=== PATIENT | male | born 1945 | race Caucasian/White ===

== ENCOUNTER 2017-02-07 09:42 | Emergency (ER) | payer MEDICARE, OTHER ==
[~2017-02-07] VITALS: Ht 182.9 cm; Wt 94.0 kg
[~2017-02-07 09:42] MED LIST: ASPI325T4 PO; ATOR20TA9 PO; DICL50TA4 PO; FINA5TAB4 PO; FLUO40CA2 PO; OMEP-110 PO
[2017-02-07 09:46] VITALS: BP 134/76
[2017-02-07 10:58] LABS: HEMATOCRIT 42.2 % (39.2-51.8); WHITE BLOOD COUNT 10.6 x10^3/uL (3.4-10)
[2017-02-07 11:01] LABS: BLOOD UREA NITROGEN 26 mg/dL (7-18)
[2017-02-07] MEDS ORDERED: CLINDAMYCIN 300 MG CAPSULE PO ONE (11:30)
[2017-02-07] MEDS ORDERED: BACITRACIN ZINC OINT 500U/GM, 0.9 GM ONE (12:15)
== END 2017-02-07 12:26 | disposition home or self-care (01) ==
LOC: ED 10:55
DX: L03.115 Cellulitis of right lower limb (principal); M96.89 Other intraoperative and postprocedural complications and disorders of the musculoskeletal system
CPT/HCPCS: 36415; 80048; 85025; 99285

== ENCOUNTER 2018-01-14 02:34 | Inpatient (IN) | payer MEDICARE, OTHER ==
[~2018-01-14] VITALS: Ht 180.3 cm; Wt 103.5 kg
[~2018-01-14 02:34] MED LIST changes: +ASPI325T17 PO; -ASPI325T4 PO
[2018-01-14] MEDS ORDERED: NALOXONE 0.4 MG/ML, 1ML ONE (02:36)
[2018-01-14 02:48] LABS: BASOPHILS # (AUTO) 0.05 x10^3/uL (0-0.1); BASOPHILS % (AUTO) 1 % (0-1); EOSINOPHILS # (AUTO) 0.62 x10^3/uL (0-0.4); EOSINOPHILS % (AUTO) 10 % (1-7); LYMPHOCYTES # (AUTO) 1.31 x10^3/uL (1-3.4); LYMPHOCYTES % (AUTO) 21 % (22-44); MD NO; MEAN CORPUSCULAR HEMOGLOBIN 30.5 pg (27.5-34.5); MEAN CORPUSCULAR HGB CONC 33.9 g/dL (33.2-36.2); MEAN PLATELET VOLUME 7.8 fL (7.4-10.4); MONOCYTES # (AUTO) 0.72 x10^3/uL (0.2-0.8); MONOCYTES % (AUTO) 11 % (2-9); NEUTROPHILS % (AUTO) 58 % (42-75); PLATELET COUNT 273 x10^3/uL (130-400); RED BLOOD COUNT 4.85 x10^6/uL (4.38-5.82); RED CELL DISTRIBUTION WIDTH 13.7 % (9.4-14.8)
[2018-01-14] MEDS ORDERED: OMNIPAQUE 350 MG/ML, 100ML BOTTLE ONE (02:59)
[2018-01-14 03:00] LABS: ALBUMIN 3.8 g/dL (3.4-5.0); ANION GAP 7 mmol/L (5-15); CALCIUM 8.4 mg/dL (8.5-10.1); CHLORIDE 108 mmol/L (98-107); CREATININE 1.18 mg/dL (0.7-1.3)
[2018-01-14] MEDS ORDERED: NALOXONE 0.4 MG/ML, 1ML IVPush ONE (03:00)
[2018-01-14 03:04] LABS: PROTHROMBIN TIME 10.4 Seconds (9.6-11.5); TROPONIN I < 0.015 ng/mL (0.000-0.045)
[2018-01-14] MEDS ORDERED: NALOXONE 1 MG/ML, 2ML ONE (03:14)
[2018-01-14] MEDS ORDERED: NALOXONE 1 MG/ML, 2ML IVPush ONE (03:30)
[2018-01-14 04:26] LABS: MICROSCOPIC NOT IND
[2018-01-14 04:32] LABS: CULTURE INDICATED? NO
[2018-01-14 04:38] LABS: AMPHETAMINE SCREEN, URINE Negative (Negative); BARBITURATE SCREEN, URINE Negative (Negative); BENZODIAZEPINE SCREEN, URINE Negative (Negative); CANNABINOID SCREEN, URINE Negative (Negative); COCAINE SCREEN, URINE Negative (Negative); METHADONE SCREEN, URINE Negative (Negative); OPIATE SCREEN, URINE Negative (Negative)
[2018-01-14] MEDS ORDERED: SODIUM CHLORIDE 0.9% 1,000 ML IV ONE (04:41)
[2018-01-14 06:39] VITALS: BP 156/93
[2018-01-14] MEDS ORDERED: ENALAPRILAT 1.25 MG/ML, 2ML IVPush PRN (07:00)
[2018-01-14] MEDS ORDERED: PROMETHAZINE 25 MG/ML, 1ML IM PRN (07:00)
[2018-01-14] MEDS ORDERED: POLYETHYLENE GLYCOL 17 GM PACKET PO PRN (07:00)
[2018-01-14] MEDS: ASPIRIN 325 MG TABLET EC PO SCH (07:00)
[2018-01-14] MEDS ORDERED: BISACODYL 10 MG SUPP PR PRN (07:00)
[2018-01-14] MEDS ORDERED: ONDANSETRON 2MG/ML, 2ML IVPush PRN (07:00)
[2018-01-14] MEDS ORDERED: ACETAMINOPHEN 325 MG TABLET PO PRN (07:00)
[2018-01-14] MEDS ORDERED: hydrALAzine 20 MG/ML, 1ML IVPush PRN (07:00)
[2018-01-14] MEDS ORDERED: DOCUSATE 100 MG CAPSULE PO PRN (07:00)
[2018-01-14] MEDS ORDERED: ONDANSETRON ODT 4 MG PO PRN (07:00)
[2018-01-14] MEDS ORDERED: PROZAC MC SCH (07:30)
[2018-01-14 07:34] LABS: FREE T4 (FREE THYROXINE) 0.67 ng/dL (0.76-1.46); THYROID STIMULATING HORMONE 3.15 mIU/L (0.358-3.740)
[2018-01-14 07:55] VITALS: BP 148/81
[2018-01-14] MEDS ORDERED: ASPIRIN 325 MG TABLET PO SCH (09:00)
[2018-01-14] MEDS: HEPARIN 5,000 UNITS/ML, 1ML SQ SCH ×3 (09:06→23:23)
[2018-01-14] MEDS: OMEPRAZOLE 20 MG CAPSULE.DR PO SCH (09:13)
[2018-01-14] MEDS: FINASTERIDE 5 MG TABLET PO SCH (09:13)
[2018-01-14] MEDS: FLUOXETINE HCL 20 MG CAPSULE PO SCH (11:24)
[2018-01-14 12:24] VITALS: BP 137/79
[2018-01-14 20:00] LABS: MICROSCOPIC AUTO
[2018-01-14 20:06] LABS: CULTURE INDICATED? NO
[2018-01-14 20:13] VITALS: BP 136/72
[2018-01-14] MEDS ORDERED: ATORVASTATIN 20 MG TABLET PO SCH (21:00)
[2018-01-15 01:02] VITALS: BP 144/87
[2018-01-15 05:16] LABS: BASOPHILS # (AUTO) 0.03 x10^3/uL (0-0.1); BASOPHILS % (AUTO) 0 % (0-1); EOSINOPHILS % (AUTO) 9 % (1-7); LYMPHOCYTES # (AUTO) 1.24 x10^3/uL (1-3.4); LYMPHOCYTES % (AUTO) 19 % (22-44); MD NO; MEAN CORPUSCULAR HEMOGLOBIN 30.4 pg (27.5-34.5); MEAN CORPUSCULAR HGB CONC 33.2 g/dL (33.2-36.2); MEAN CORPUSCULAR VOLUME 91.4 fL (81-97); MEAN PLATELET VOLUME 7.9 fL (7.4-10.4); MONOCYTES # (AUTO) 0.54 x10^3/uL (0.2-0.8); MONOCYTES % (AUTO) 8 % (2-9); NEUTROPHILS # (AUTO) 4.32 x10^3/uL (1.8-6.8); NEUTROPHILS % (AUTO) 64 % (42-75); PLATELET COUNT 266 x10^3/uL (130-400); RED CELL DISTRIBUTION WIDTH 13.9 % (9.4-14.8)
[2018-01-15 05:28] LABS: ALANINE AMINOTRANSFERASE 35 U/L (12-78); ALBUMIN 3.7 g/dL (3.4-5.0); ANION GAP 6 mmol/L (5-15); CALCIUM 8.2 mg/dL (8.5-10.1); CHLORIDE 108 mmol/L (98-107); CREATININE 1.09 mg/dL (0.7-1.3)
[2018-01-15 05:30] LABS: ALKALINE PHOSPHATASE 88 U/L (45-117); BILIRUBIN,TOTAL 0.6 mg/dL (0.2-1.0); CHOL/HDL RATIO 3.2; CHOLESTEROL, TOTAL 171 mg/dL (140-239); HDL CHOL % 31 % (26-37); HDL CHOLESTEROL (DIRECT) 53 mg/dL (40-60); LDL CHOLESTEROL,CALCULATED 89 mg/dL (54-169); LDL/HDL RATIO 1.7 (0.5-3.0); TOTAL PROTEIN 6.4 g/dL (6.4-8.2); TRIGLYCERIDES 143 mg/dL (50-200); VLDL CHOLESTEROL 29 mg/dL (0-25)
[2018-01-15] MEDS: ASPIRIN 325 MG TABLET EC PO SCH (05:34)
[2018-01-15 06:54] VITALS: BP 151/87
[2018-01-15] MEDS: FLUOXETINE HCL 20 MG CAPSULE PO SCH (07:37)
[2018-01-15] MEDS: HEPARIN 5,000 UNITS/ML, 1ML SQ SCH ×3 (07:37→23:23)
[2018-01-15] MEDS: FINASTERIDE 5 MG TABLET PO SCH (07:37)
[2018-01-15] MEDS: OMEPRAZOLE 20 MG CAPSULE.DR PO SCH (07:37)
[2018-01-15] MEDS ORDERED: CLOPIDOGREL 300 MG TABLET PO ONE (08:30)
[2018-01-15] MEDS ORDERED: FAMOTIDINE 20 MG TABLET ONE (08:37)
[2018-01-15] MEDS: FAMOTIDINE 20 MG TABLET PO SCH ×2 (09:04→20:14)
[2018-01-15 12:05] VITALS: BP 147/76
[2018-01-15] MEDS: LISINOPRIL 10 MG TABLET PO SCH (15:42)
[2018-01-15 20:02] VITALS: BP 136/78
[2018-01-15] MEDS ORDERED: ATORVASTATIN 80 MG TABLET PO SCH (21:00)
[2018-01-16 01:36] VITALS: BP 116/75
[2018-01-16 06:47] VITALS: BP 137/74
[2018-01-16] MEDS ORDERED: CLOPIDOGREL 75 MG TABLET PO SCH (09:00)
[2018-01-16] MEDS ORDERED: ATOR-2 PO (09:36)
[2018-01-16] MEDS: HEPARIN 5,000 UNITS/ML, 1ML SQ SCH (09:36)
[2018-01-16] MEDS ORDERED: FAMO20TA7 PO (09:36)
[2018-01-16] MEDS ORDERED: CLOP75TA PO (09:36)
[2018-01-16] MEDS ORDERED: LISI-167 PO (09:36)
[2018-01-16] MEDS: FLUOXETINE HCL 20 MG CAPSULE PO SCH (09:37)
[2018-01-16] MEDS: LISINOPRIL 10 MG TABLET PO SCH (09:37)
[2018-01-16] MEDS: FAMOTIDINE 20 MG TABLET PO SCH (09:37)
[2018-01-16] MEDS: FINASTERIDE 5 MG TABLET PO SCH (09:37)
== END 2018-01-16 11:40 | disposition home or self-care (01) | DRG 64 ==
LOC: ED 05:13 → EDIP 05:15 → 4EST 05:50 → DCLOUNGE 01-16 11:15
PROVIDERS: ADMIT Internal Medicine; ATTEND Internal Medicine
DX: I63.9 Cerebral infarction, unspecified (principal); G93.41 Metabolic encephalopathy; I10 Essential (primary) hypertension; F32.9 Major depressive disorder, single episode, unspecified; E78.5 Hyperlipidemia, unspecified; K21.9 Gastro-esophageal reflux disease without esophagitis; R29.810 Facial weakness; R29.700 NIHSS score 0; R47.81 Slurred speech; I77.1 Stricture of artery; I07.1 Rheumatic tricuspid insufficiency; N40.0 Benign prostatic hyperplasia without lower urinary tract symptoms; Z79.02 Long term (current) use of antithrombotics/antiplatelets; Z86.718 Personal history of other venous thrombosis and embolism; Z91.19 Patient's noncompliance with other medical treatment and regimen; Z88.8 Allergy status to other drugs, medicaments and biological substances
CPT/HCPCS: 36415; 70450; 70496; 70498; 70551; 71045; 80047; 80048; 80053; 80061; 80307; 81001; 81003; 82040; 82140; 83036; 83735; 84439; 84443; 84484; 85025; 85610; 85730; 93005; 93306; 96374; 96376; J1644; J2310; Q9967; 92523-GN; J7030

== ENCOUNTER 2019-04-18 10:35 | Emergency (ER) | payer MEDICARE, OTHER ==
[~2019-04-18] VITALS: Ht 182.9 cm; Wt 98.0 kg
[~2019-04-18 10:35] MED LIST changes: +ATOR-2 PO; +ATOR20TA37 PO; -ATOR20TA9 PO; +CEFD300C37 PO; +CLOP75TA PO; +FAMO20TA7 PO; +HYDR-3240 PO; +LINE600T15 PO; +LISI-167 PO; +OMEP40CA6 PO; +RIVA20TA PO
[2019-04-18] MEDS ORDERED: ONDANSETRON 2MG/ML, 2ML IVPush ONE (11:30)
[2019-04-18] MEDS ORDERED: HYDROCORTISONE 25 MG SUPP PR ONE (11:30)
[2019-04-18] MEDS ORDERED: MORPHINE SULFATE 4 MG/ML, 1ML IVPush PRN (11:30)
--- NOTE | 2019-04-18 11:44 | NUR ---
Right forearm piv placed from which labs were drawn and sent
[2019-04-18 11:52] LABS: BASOPHILS # (AUTO) 0.01 x10^3/uL (0-0.1); BASOPHILS % (AUTO) 0 % (0-1); EOSINOPHILS # (AUTO) 0.15 x10^3/uL (0-0.4); EOSINOPHILS % (AUTO) 2 % (1-7); LYMPHOCYTES # (AUTO) 0.65 x10^3/uL (1-3.4); LYMPHOCYTES % (AUTO) 7 % (22-44); MD NO; MEAN CORPUSCULAR HEMOGLOBIN 29.4 pg (27.5-34.5); MEAN CORPUSCULAR HGB CONC 32.7 g/dL (33.2-36.2); MEAN CORPUSCULAR VOLUME 90.1 fL (81-97); MEAN PLATELET VOLUME 8.2 fL (7.4-10.4); MONOCYTES # (AUTO) 0.46 x10^3/uL (0.2-0.8); MONOCYTES % (AUTO) 5 % (2-9); NEUTROPHILS % (AUTO) 87 % (42-75); PLATELET COUNT 269 x10^3/uL (130-400); RED BLOOD COUNT 5.12 x10^6/uL (4.38-5.82); RED CELL DISTRIBUTION WIDTH 14.2 % (9.4-14.8)
[2019-04-18] MEDS ORDERED: MORPHINE SULFATE 4 MG/ML, 1ML ONE (11:53)
[2019-04-18] MEDS ORDERED: ONDANSETRON 2MG/ML, 2ML ONE (11:53)
[2019-04-18 11:55] LABS: ALANINE AMINOTRANSFERASE 36 U/L (12-78); ALBUMIN 3.7 g/dL (3.4-5.0); ANION GAP 8 mmol/L (5-15); CALCIUM 8.6 mg/dL (8.5-10.1); CHLORIDE 110 mmol/L (98-107); CREATININE 1.28 mg/dL (0.7-1.3); INTERNATIONAL NORMALIZED RATIO 1.02 (0.93-1.1); PROTHROMBIN TIME 10.7 Seconds (9.6-11.5)
[2019-04-18 11:57] LABS: ALKALINE PHOSPHATASE 97 U/L (45-117); BILIRUBIN,TOTAL 0.7 mg/dL (0.2-1.0); TOTAL PROTEIN 6.6 g/dL (6.4-8.2)
[2019-04-18 12:40] VITALS: BP 121/68
--- NOTE | 2019-04-18 12:44 | NUR ---
TO XRAY PAIN IMPROVED TO 7/10
--- NOTE | 2019-04-18 12:59 | NUR ---
PATIENT UNABLE TO PRODUCE STOOL. PROVIDER AWARE. NOT TO MECHANICALLY OBTAIN SPECIMEN PATIENT WITH SIGNIFICANT RECTAL PROLAPSE/HEMMORHOID
--- NOTE | 2019-04-18 13:22 | NUR ---
PROVIDER TO BEDSIDE TO DISPO HOME WITH GEN SURG F/U FOR RECTAL PROLAPSE/ RECC FOR SITZ BATHS
== END 2019-04-18 14:49 | disposition home or self-care (01) ==
LOC: ED 14:30
DX: K64.8 Other hemorrhoids (principal); K64.4 Residual hemorrhoidal skin tags; I10 Essential (primary) hypertension; F41.1 Generalized anxiety disorder; E78.5 Hyperlipidemia, unspecified; K21.9 Gastro-esophageal reflux disease without esophagitis; F32.9 Major depressive disorder, single episode, unspecified; Z86.718 Personal history of other venous thrombosis and embolism
CPT/HCPCS: 36415; 74021; 80053; 85025; 85610; 85730; 96374; 96375; 99284; J2270; J2405

== ENCOUNTER → 2019-11-15 | Outpatient (CLI) | payer MEDICARE, OTHER ==
[~2019-11-15] MED LIST changes: +OMEP40CA42 PO; -OMEP40CA6 PO; +OMNIPAQUE 350 MG/ML, 100ML BOTTLE ONE
== END | disposition home or self-care (01) ==
LOC: CFH 08:35
PROVIDERS: ATTEND Registered Nurse
DX: I26.99 Other pulmonary embolism without acute cor pulmonale (principal); N28.1 Cyst of kidney, acquired
CPT/HCPCS: 71275; 82565; Q9967